=== PATIENT | male | born 1940 | race Asian ===

== ENCOUNTER 2022-01-23 10:02 | Day surgery (SDC) | payer OTHER ==
[~2022-01-23] VITALS: Ht 144.8 cm; Wt 39.0 kg
[2022-01-23] MEDS ORDERED: fentaNYL citrate 0.05 MG/ML VIAL ONE (12:34)
[2022-01-23] MEDS ORDERED: MIDAZOLAM 5 MG/5 ML VIAL ONE (12:35)
[2022-01-23] MEDS ORDERED: LIDOCAINE 2% 100 MG/5 ML UJET TP ONE (12:35)
[2022-01-23] MEDS: MIDAZOLAM 2 MG/2 ML VIAL IVP ONE (12:42)
[2022-01-23] MEDS: fentaNYL citrate 0.05 MG/ML VIAL IVP ONE (12:43)
== END 2022-01-23 13:45 | disposition home or self-care (01) ==
LOC: MMU 10:02 → MDS 10:02
PROVIDERS: ATTEND Internal Medicine Gastroenterology
DX: R63.4 Abnormal weight loss (principal); F10.10 Alcohol abuse, uncomplicated; I10 Essential (primary) hypertension; Z79.899 Other long term (current) drug therapy; Z20.822 Contact with and (suspected) exposure to COVID-19
CPT/HCPCS: 43239; 45378; 87426; 88305; 88312; 88313; 88342; J2250; J3010